=== PATIENT | female | born 1970 | race Caucasian/White ===

== ENCOUNTER 2022-09-18 02:39 | Emergency (ER) | payer BC, SELFPAY ==
--- NOTE | ~2022-09-18 | CT_ITS ---
EXAMINATION: CT ABDOMEN AND PELVIS WITH CONTRAST CLINICAL INFORMATION: Left lower quadrant pain COMPARISON: None available. TECHNIQUE: Multidetector volumetric images were obtained from the superior aspect of the liver through the pubic symphysis following administration 85 mL of Omnipaque 350 intravenous contrast. Sagittal and coronal reformatted images were obtained on the technologist's workstation. Oral contrast: No This CT examination was performed using dose optimization techniques as appropriate, variously including the following: *Automated exposure control *Adjustment of mA and/or kV according to patient size (this includes techniques or standardized protocols for targeted exams where dose is matched to indication/reason for exam; i.e. extremities or head) *Use of iterative reconstruction technique DLP: 417 mGy-cm FINDINGS: LUNG BASES: The visualized lung bases are unremarkable. LIVER, GALLBLADDER, AND BILIARY TREE: The liver is normal in size, shape, and attenuation. No biliary ductal dilatation. Prominent hypoattenuating lesion in segment 2 of the liver which measures higher than simple fluid.. The gallbladder is unremarkable with no evidence of radiopaque gallstones, gallbladder wall thickening, or obvious pericholecystic inflammatory changes. PANCREAS: Unremarkable. SPLEEN: Unremarkable. ADRENAL GLANDS: Unremarkable. KIDNEYS AND URETERS: The kidneys are normal in size, shape, and attenuation. No hydronephrosis or hydroureter. Adjacent right midpole 0.4 cm calculi, 8 cm from the posterior axillary line. Hypoattenuating lesions are seen throughout the cortices, too small to fully characterize. BLADDER: Unremarkable. GASTROINTESTINAL TRACT: The small and large bowel are unremarkable. The appendix is unremarkable. ABDOMINAL WALL: No significant hernia is appreciated. LYMPH NODES: Normal. VASCULAR: Unremarkable. PELVIC VISCERA: The uterus and adnexa are unremarkable. OSSEOUS STRUCTURES: No acute or suspicious osseous abnormality. CT/CT abdomen pelvis w IV con IMPRESSION: 1. No acute findings in the abdomen or pelvis. No inflammatory changes. 2. Nonobstructing right renal calculi. 3. Prominent hypoattenuating lesion in segment 2 of the liver which measures higher than simple fluid. This can be evaluated further with ultrasound. Fleischner guidelines were followed.
[2022-09-18 02:41] VITALS: BP 128/65; PULSE 86; RESP 18; TEMP 36.7; O2SAT 96; BMI 19.3
[2022-09-18 03:03] LABS: Appearance Urine Cloudy; Color Urine Dark Yellow; Glucose Urine UA Negative (Negative); Leukocyte Esterase Urine Negative (Negative); Nitrite Urine Negative (Negative); PH 6.5 (5.0-9.0); Urine Blood Negative (Negative); Urine Ketones Negative (Negative); Urine Protein Negative (Neg-Trace)
--- NOTE | 2022-09-18 03:09 | ED_ITS ---
HPI - Female Genitourinary General Chief complaint: Urogenital-Female Stated complaint: Dizziness/Abd pain Time Seen by Provider: 09/18/22 03:00 History of Present Illness HPI Narrative: Patient is a 52-year-old female with a history of yeast infection to Ezequiel swab by her primary OBGYN. Presents today with having nausea vomiting lower abdominal pain. Pain is worse on the left side. No fever no chills. No cough no congestion no respiratory symptoms. No diaphoresis. Positive pain on urination. No change in bowel movement. Pain is cramp like. No history of abdominal surgery. Patient is postmenopausal. Related Data Previous Rx's Medication Instructions Recorded ondansetron 4 mg disintegrating 4 mg PO TID PRN nausea and 09/18/22 tablet vomiting 5 days #10 tabs Allergies Allergy/AdvReac Type Severity Reaction Status Date / Time No Known Allergies Allergy Verified 09/18/22 03:06 Review of Systems Review of Systems: No fever no chills. Positive abdominal pain Yes all other systems are reviewed and are negative [facility] Past Medical History Attestation statement: The following information was validated with the patient. Social History Social History Advance Directives: No Advance Directives Information Provided: Yes Physical Exam Vital Signs: Vital Signs: Last Vital Signs Temp 98.0 F 09/18/22 04:49 Pulse 61 09/18/22 04:49 Resp 16 09/18/22 04:49 BP 115/52 L 09/18/22 04:49 Pulse Ox 97 09/18/22 04:49 O2 Del Method Room Air 09/18/22 04:49 BMI result Body Mass Index 19.3 Appearance: Alert. Oriented X3. No acute distress. Eyes: Pupils equal, round and reactive to light. ENT: Pharynx normal. Neck: Normal inspection. Neck supple. No lymph nodes noted. No crepitus CVS: Normal heart rate and rhythm. Pulses normal. Normal S1 and S2 Respiratory: No respiratory distress. Breath sounds normal. No Wheezing. No rales Abdomen: Soft and nontender. No rigidity. No distention. good BS x4 Skin: Skin warm and dry. Normal skin color. Normal skin turgor. Extremities: No lower extremity edema. Neurovascular intact to all extremities. No Lacerations. No Rash Neuro: Oriented X 3. No motor deficit. No sensory deficit. Moving all extermities. No slurred speech Medications Administered Discontinued Medications Generic Name Dose Route Start Last Admin Trade Name Anai PRN Reason Stop Dose Admin Sodium Chloride 1,000 mls @ 999 mls/hr 09/18/22 03:15 09/18/22 04:37 Ns IV 09/18/22 04:15 Infused .Q1H1M JANETH Infusion Iohexol 85 ml 09/18/22 04:49 09/18/22 04:49 Iohexol 350 Mg/Ml 100 Ml Infus..Btl IV 09/18/22 04:50 85 ml ONCE ONE Administration Ketorolac Tromethamine 30 mg 09/18/22 03:07 09/18/22 03:23 Ketorolac Tromethamine 30 Mg/Ml Vial IVPUSH 09/18/22 03:08 30 mg ONCE ONE Administration Ondansetron HCl 4 mg 09/18/22 03:07 09/18/22 03:23 Ondansetron Hcl 4 Mg/2 Ml Vial IVPUSH 09/18/22 03:08 4 mg ONCE ONE Administration Medical Decision Making Medical Decision Making [facility] Narrative: Patient presents today with having nausea lower abdominal pain. Already had a pelvic exam done by her primary physician. Patient was started on medication for yeast infection. Patient's urine was grossly negative for any acute evidence of infection. CT scan of the abdomen pelvis showed no evidence of appendicitis, diverticulitis, abscess, perforation. Patient well-appearing given IV fluids Zofran for nausea with good resolution of symptoms. Will discharge patient home. Hypoattenuation lesion noted in the liver. More likely a cyst. Will require follow-up on an outpatient basis. A copy of the CT scan was given to patient. Differential Diagnosis Differential Diagnoses: The differential diagnosis associated with the presentation includes Nausea, urinary tract infection, appendicitis, diverticulitis, Lab Data 09/18/22 03:17 09/18/22 03:17 Labs: Lab Results 09/18/22 09/18/22 09/18/22 Range/Units 02:55 03:17 03:17 WBC 7.2 (4.8-10.8) X10*3/uL RBC 4.33 (4.20-5.50) X10*6/uL Hgb 13.7 (12.0-16.0) g/dl Hct 40.3 (37.0-47.0) % MCV 93.1 (80.0-98.0) fL MCH 31.6 (27.0-33.0) pg MCHC 34.0 (31.0-35.0) g/dl RDW 11.8 (11.0-16.0) % Plt Count 231 (160-400) X10*3/uL MPV 9.6 (9.4-12.3) fL Immature Gran % (Auto) 0.1 (0.0-0.4) % Neut % (Auto) 59.5 (45-73) % Lymph % (Auto) 27.7 (20-40) % Lake % (Auto) 9.5 (2-11) % Eos % (Auto) 2.5 (0-4) % Baso % (Auto) 0.7 (0-2) % Lymph # (Auto) 2.0 (1.2-4.9) X10*3/uL [place] # (Auto) 0.7 (0.1-1.2) X10*3/uL Eos # (Auto) 0.2 (0.0-0.4) X10*3/uL Baso # (Auto) 0.1 (0.0-0.2) X10*3/uL Abs Immat Gran (auto) 0.01 (0.00-0.03) X10*3/uL Absolute Neuts (auto) 4.3 (2.0-8.3) x10*3/uL Absolute Nucleated RBC 0.000 (0.0-0.012) X10*3/uL Nucleated RBC % (auto) 0.0 (0.0-0.2) /100WBC Sodium 140 (135-145) mmol/L Potassium 4.0 (3.3-5.1) mmol/L Chloride 108 (96-108) mmol/L Carbon Dioxide 24 (22-29) mmol/L Anion Gap 12 (12-20) BUN 18 H (9-16) mg/dL Creatinine 0.79 (0.5-1.4) mg/dL Estim Creat Clear Calc 80.5 Estimated GFR > 60 Random Glucose 106 (60-115) mg/dL Calcium 8.8 (8.4-10.2) mg/dL Total Bilirubin 0.4 (0.0-1.0) mg/dL Direct Bilirubin 0.1 (0.0-0.5) mg/dL AST 19 (5-31) U/L ALT 14 (0-31) U/L Alkaline Phosphatase 60 (39-117) U/L Total Protein 6.3 L (6.5-8.0) g/dL Albumin 4.0 (3.5-5.0) g/dL Lipase 29 (8-78) U/L Urine Color Dark Yellow Urine Appearance Cloudy Urine pH 6.5 (5.0-9.0) Ur Specific [place] 1.020 (1.005-1.025) Urine Protein Negative (Neg-Trace) mg/dL Urine Glucose (UA) Negative (Negative) mg/dL Urine Ketones Negative (Negative) mg/dL Urine Blood Negative (Negative) Urine Nitrite Negative (Negative) Ur Leukocyte Esterase Negative (Negative) Prescription Management Nausea medication Discharge Plan Discharge Clinical Impression: Nausea Patient Disposition: Home, Self-Care Instructions: Acute Nausea and Vomiting (ED) Prescriptions: New ondansetron 4 mg tablet,disintegrating 4 mg PO TID PRN (Reason: nausea and vomiting) 5 Days Qty: 10 0RF Referrals: Physician,Ami J [Primary Care Provider] - 09/20/22
[2022-09-18 03:21] LABS: MANUAL DIFF FLAG NO
[2022-09-18 03:22] LABS: Basophils Absolute Auto 0.1 X10*3/uL (0.0-0.2); Basophils Percent Auto 0.7 % (0-2); Eosinophils Absolute Auto 0.2 X10*3/uL (0.0-0.4); Eosinophils Percent Auto 2.5 % (0-4); Hematocrit 40.3 % (37.0-47.0); Hemoglobin 13.7 g/dl (12.0-16.0); Imm Gran Abs Auto 0.01 X10*3/uL (0.00-0.03); Imm Gran Pct Auto 0.1 % (0.0-0.4); Lymphocytes Percent Auto 27.7 % (20-40); Mean Corpuscular Hemoglobin 31.6 pg (27.0-33.0); Mean Corpuscular Volume 93.1 fL (80.0-98.0); Mean Platelet Volume 9.6 fL (9.4-12.3); Monocytes Absolute Auto 0.7 X10*3/uL (0.1-1.2); Monocytes Percent Auto 9.5 % (2-11); Neutrophils Absolute Auto 4.3 x10*3/uL (2.0-8.3); Neutrophils Percent Auto 59.5 % (45-73); Platelet Count 231 X10*3/uL (160-400); Red Blood Count 4.33 X10*6/uL (4.20-5.50); Red Cell Distribution Width 11.8 % (11.0-16.0); White Blood Count 7.2 X10*3/uL (4.8-10.8)
[2022-09-18] MEDS: Ketorolac Tromethamine 30 MG/ML VIAL IVPUSH (03:23)
[2022-09-18] MEDS: ondansetron HCL 4 MG/2 ML VIAL IVPUSH (03:23)
[2022-09-18] MEDS: 0.9 % Sodium Chloride 1,000 ML 999 ML IV (03:27)
--- NOTE | 2022-09-18 03:30 | PC.NURSE ---
Patient is alert and oriented x3. Patient is able to make her needs known. She c/o pressure like pain in lower abdomen, urinary frequency, nausea. Patient was recently treated for vaginal yeast infection with Monistat. Patient is afebrile, VSS. IV line placed in R AC, blood drawn/urine specimen collected per MD orders and sent to lab for processing. Patient medicated per JUL, call hilton in patient's reach.
[2022-09-18 03:38] LABS: Alanine Aminotransferase 14 U/L (0-31); Alkaline Phosphatase 60 U/L (39-117); Anion Gap 12 (12-20); Aspartate Amino Transferase 19 U/L (5-31); Bilirubin Direct 0.1 mg/dL (0.0-0.5); Bilirubin Total 0.4 mg/dL (0.0-1.0); Blood Urea Nitrogen 18 mg/dL (9-16); Calcium 8.8 mg/dL (8.4-10.2); Carbon Dioxide 24 mmol/L (22-29); Chloride 108 mmol/L (96-108); Creatinine Clr Calc Pharmacy 80.5; Estimated Glomerular Filt Rate > 60; Glucose Random 106 mg/dL (60-115); Lipase 29 U/L (8-78); Sodium 140 mmol/L (135-145); Total Protein 6.3 g/dL (6.5-8.0)
--- NOTE | 2022-09-18 04:37 | PC.NURSE ---
Patient taken to CT scan.
[2022-09-18 04:49] VITALS: BP 115/52; PULSE 61; RESP 16; TEMP 36.7; O2SAT 97
[2022-09-18] MEDS: iohexoL 350 MG/ML 100 ML INFUS..BTL 85 ML IV (04:49)
--- NOTE | 2022-09-18 04:53 | PC.NURSE ---
Patient returned from CT scan. Vital signs obtained. Patient reports pain in lower abdomen at tolerable level /10. Call hilton within patient's reach.
== END 2022-09-18 05:52 | disposition home or self-care (01) ==
PROVIDERS: Emergency Provider Emergency Medicine Emergency Medical Services
DX: R10.2 Pelvic and perineal pain (principal); R11.2 Nausea with vomiting, unspecified; R10.30 Lower abdominal pain, unspecified; Z79.899 Other long term (current) drug therapy
CPT/HCPCS: 36415; 74177; 80048; 80076; 81003; 83690; 85025; 96361; 96374; 96375; 99284; 99285; J1885; J2405; Q9967

== ENCOUNTER 2022-09-24 15:54 | Emergency (ER) | payer BC, SELFPAY ==
--- NOTE | ~2022-09-24 | US_ITS ---
EXAMINATION: US PELVIS CLINICAL INFORMATION: Suprapubic pain, dysuria. Postmenopausal. COMPARISON: CT abdomen/pelvis 09/18/2022. TECHNIQUE: Ultrasound of the pelvis is performed using both transabdominal and transvaginal transducers along with Doppler. Transvaginal imaging is performed due to inadequate visualization transabdominally. FINDINGS: The uterus is anteverted and anteflexed measuring 9 x 4.5 x 5 cm. No uterine lesions. The endometrium measures 0.5 cm without discrete focal abnormality. Nabothian cysts overlie the cervix. The left ovary is not visualized, there is history of prior left oophorectomy. There are multiple cystic lesions in the right ovary some demonstrating internal septations and debris, largest measuring approximately 2.6 x 2.2 x 2.3 cm. The right ovary, with inclusion of these cysts, measures 4.5 x 3.3 x 2.7 cm, 21 mL. There is preserved flow to the ovarian stroma the moment of this examination, although evaluation is limited due to the overlying cystic lesions. There are tortuous adnexal vessels. No free fluid. US/US pelvic and transvaginal IMPRESSION: Complex appearance of the right ovary which is enlarged and demonstrates several cystic lesions, some with internal septations. In a post menopausal patient, further evaluation with a pelvic MRI with and without IV contrast is recommended to rule out malignancy. Tortuous adnexal vessels could be seen with pelvic congestion syndrome in the appropriate clinical context. The endometrium is within the upper limits of normal for postmenopausal patient measuring 0.5 cm.
--- NOTE | ~2022-09-24 | US_ITS ---
EXAMINATION: US PELVIS CLINICAL INFORMATION: Suprapubic pain, dysuria. Postmenopausal. COMPARISON: CT abdomen/pelvis 09/18/2022. TECHNIQUE: Ultrasound of the pelvis is performed using both transabdominal and transvaginal transducers along with Doppler. Transvaginal imaging is performed due to inadequate visualization transabdominally. FINDINGS: The uterus is anteverted and anteflexed measuring 9 x 4.5 x 5 cm. No uterine lesions. The endometrium measures 0.5 cm without discrete focal abnormality. Nabothian cysts overlie the cervix. The left ovary is not visualized, there is history of prior left oophorectomy. There are multiple cystic lesions in the right ovary some demonstrating internal septations and debris, largest measuring approximately 2.6 x 2.2 x 2.3 cm. The right ovary, with inclusion of these cysts, measures 4.5 x 3.3 x 2.7 cm, 21 mL. There is preserved flow to the ovarian stroma the moment of this examination, although evaluation is limited due to the overlying cystic lesions. There are tortuous adnexal vessels. No free fluid. US/US pelvic ovarian doppler IMPRESSION: Complex appearance of the right ovary which is enlarged and demonstrates several cystic lesions, some with internal septations. In a post menopausal patient, further evaluation with a pelvic MRI with and without IV contrast is recommended to rule out malignancy. Tortuous adnexal vessels could be seen with pelvic congestion syndrome in the appropriate clinical context. The endometrium is within the upper limits of normal for postmenopausal patient measuring 0.5 cm.
[2022-09-24 16:05] VITALS: BP 134/87; PULSE 96; RESP 18; TEMP 36.6; O2SAT 97; BMI 20.2
--- NOTE | 2022-09-24 16:07 | ED_ITS ---
HPI - Female Genitourinary General Chief complaint: Urogenital-Female <STEPHANIE Polo Last Filed: 09/24/22 16:14> Stated complaint: ?UTI/ meds not working <STEPHANIE Polo Last Filed: 09/24/22 16:14> Time Seen by Provider: 09/24/22 16:42 <STEPHANIE Polo Last Filed: 09/24/22 16:14> Source: patient, RN notes reviewed and old records reviewed <STEPHANIE Tran Last Filed: 09/24/22 19:30> Mode of arrival: ambulatory <STEPHANIE Tran Last Filed: 09/24/22 19:30> History of Present Illness HPI Narrative: 52-year-old female with a past medical history of left cystectomy with oophorectomy, recently treated for yeast infection with Diflucan x 3 doses and UTI (has taken 2 doses of Macrobid) complaining of continued nausea, pelvic discomfort/pressure, mild dysuria, and vaginal discharge. Patient was recently seen by PCP and in our ED on 09/18/22 for similar symptoms, had negative yeast culture, labs, UA, and CT. Admits symptoms did improve after Diflucan doses, however recurred. Is sexually active with 1 male partner, denies concern for STIs. Denies vomiting, hematuria, vaginal bleeding, flank pain, constipation <STEPHANIE Tran Last Filed: 09/24/22 19:30> MD elicited complaint: dysuria, UTI , vaginal discharge and pelvic pain <STEPHANIE Tran Last Filed: 09/24/22 19:30> Related Data Home medications: Previous Rx's Medication Instructions Recorded ondansetron 4 mg disintegrating 4 mg PO TID PRN nausea and 09/18/22 tablet vomiting 5 days #10 tabs clotrimazole 1 % topical cream 1 appl topical BID 2 weeks #45 09/24/22 (Clotrimazole AF) grams doxycycline hyclate 100 mg capsule 100 mg PO BID 14 days #28 caps 09/24/22 metronidazole 500 mg tablet 500 mg PO BID 14 days #28 tabs 09/24/22 <STEPHANIE Polo Last Filed: 09/24/22 16:14> Allergies/Adverse reactions: Allergies Allergy/AdvReac Type Severity Reaction Status Date / Time No Known Allergies Allergy Verified 09/24/22 16:05 <STEPHANIE Polo - Last Filed: 09/24/22 16:14> Review of Systems Review of Systems: Constitutional: No Fever, No Chills, No Fatigue, No Malaise ENT/Mouth: No Ear Pain, No Nasal Congestion, No sore throat, No Rhinorrhea, No Swallowing Difficulty Eyes: No Eye Pain, No Swelling, No Redness Cardiovascular: No Chest Pain, No SOB, No Dyspnea on Exertion, No Orthopnea, No Edema, No Palpitations Respiratory: No Cough, No Sputum, No Wheezing, No Smoke Exposure, No Dyspnea Gastrointestinal: + Nausea, No Vomiting, No Diarrhea, No Constipation, + Abdominal pain Genitourinary: +vaginal d/c, No irregular bleeding, + Dysuria, No Urinary Frequency, No Hematuria, No Urinary Incontinence/retention, No Flank Pain Musculoskeletal: No joint pain, No Myalgias, No Joint Swelling Skin: No Skin Lesions, No rash Neuro: No Weakness, No Headache <STEPHANIE Tran - Last Filed: 09/24/22 19:30> Yes all other systems are reviewed and are negative <STEPHANIE Tran - Last Filed: 09/24/22 19:30> Constitutional: Constitutional: Reports as per HPI <STEPHANIE Tran - Last Filed: 09/24/22 19:30> [facility] Past Medical History Attestation statement: The following information was validated with the patient. <Jason Tran - Last Filed: 09/24/22 19:30> Social History Social History: Social History Advance Directives: No Advance Directives Information Provided: No <STEPHANIE Polo - Last Filed: 09/24/22 16:14> Physical Exam Vital Signs: Vital Signs: Last Vital Signs Temp 97.9 F 09/24/22 16:05 Pulse 96 09/24/22 16:05 Resp 18 09/24/22 16:05 BP 134/87 09/24/22 16:05 Pulse Ox 97 09/24/22 16:05 O2 Del Method Room Air 09/24/22 16:05 BMI result Body Mass Index 20.2 <STEPHANIE Polo - Last Filed: 09/24/22 16:14> Vital Signs: Last Vital Signs Temp 97.9 F 09/24/22 16:05 Pulse 96 09/24/22 16:05 Resp 18 09/24/22 16:05 BP 134/87 09/24/22 16:05 Pulse Ox 97 09/24/22 16:05 O2 Del Method Room Air 09/24/22 16:05 BMI result Body Mass Index 20.2 <STEPHANIE Tran - Last Filed: 09/24/22 19:30> Const: General: cooperative, healthy appearing and no acute distress <STEPHANIE Tran - Last Filed: 09/24/22 19:30> Orientation/consciousness: patient oriented x3 <STEPHANIE Tran - Last Filed: 09/24/22 19:30> Limitations: no limitations <STEPHANIE Tran - Last Filed: 09/24/22 19:30> HEENT: Head: Yes normal to inspection and Yes atraumatic <STEPHANIE Tran - Last Filed: 09/24/22 19:30> Ears: hearing grossly normal bilaterally <STEPHANIE Tran - Last Filed: 09/24/22 19:30> General nose exam: Normal external nose present <STEPHANIE Tran - Last Filed: 09/24/22 19:30> Face and sinus: Yes normal facial exam <STEPHANIE Tran - Last Filed: 09/24/22 19:30> Eyes: General: appearance normal, both eyes and all related structures <STEPHANIE Tran - Last Filed: 09/24/22 19:30> EOM: EOMs intact bilaterally <STEPHANIE Tran - Last Filed: 09/24/22 19:30> Neck: Neck: Yes normal visual inspection and Yes no meningeal signs <STEPHANIE Tran - Last Filed: 09/24/22 19:30> Resp: Effort & Inspection: normal respiratory effort and no respiratory distress <STEPHANIE Tran - Last Filed: 09/24/22 19:30> Cardio: Rate: regular rate <STEPHANIE Tran - Last Filed: 09/24/22 19:30> Heart sounds: S1 normal heart sound present and S2 normal heart sound present <Lauren Nguyen PA - Last Filed: 09/24/22 19:30> GI: Inspection: Yes normal to inspection <Lauren Nguyen PA - Last Filed: 09/24/22 19:30> Palpation (GI): Soft to palpation, nontender, no guarding and not rigid <Lauren Nguyen PA - Last Filed: 09/24/22 19:30> : General: Yes no CVA tenderness <Lauren Nguyen PA - Last Filed: 09/24/22 19:30> Speculum Exam - Cervix: Abnormal cervical discharge present white (thick, curd- like), Cervical lesion present polyp and nontender <Lauren Nguyen PA - Last Filed: 09/24/22 19:30> Bimanual exam- vagina & uterus: No Cervical tenderness present, not boggy and no cervical motion tenderness <Lauren Nguyen PA - Last Filed: 09/24/22 19:30> Bimanual Exam- Adnexa, other: tender bilaterally and no masses noted <Lauren Nguyen PA - Last Filed: 09/24/22 19:30> Back/Spine/Pelvis: Back: no CVA tenderness <Lauren Nguyen PA - Last Filed: 09/24/22 19:30> Skin: Rashes: no rashes <Lauren Nguyen PA - Last Filed: 09/24/22 19:30> Wounds: no wounds <Lauren Nguyen PA - Last Filed: 09/24/22 19:30> Neuro: General: patient oriented x3, tone normal and no meningeal signs <Lauren Nguyen PA - Last Filed: 09/24/22 19:30> Gait exam (Neuro): Normal gait present <Lauren Nguyen PA - Last Filed: 09/24/22 19:30> Extrem: General: Yes normal to inspection <Lauren Nguyen PA - Last Filed: 09/24/22 19:30> Course Course Course Narrative: RME - 52 yo female with recent yeast infection s/p diflucan x3 since last week who presents to the ER for evaluation of worsening bladder pressure since last week. She also has severe bouts of nausea, dizziness and weakness. She was seen here on 09/18, had a negative UA and CT scan at the time. She was seen at Urgent Care yesterday, had a negative UA but was started on macrobid with no improvement. She reports recently using new sex todays vaginally and anally with a lubricant w/ clove. Plan: UA, pelvic exam <STEPHANIE Polo - Last Filed: 09/24/22 16:14> RME - 52 yo female with recent yeast infection s/p diflucan x3 since last week who presents to the ER for evaluation of worsening bladder pressure since last week. She also has severe bouts of nausea, dizziness and weakness. She was seen here on 09/18, had a negative UA and CT scan at the time. She was seen at Urgent Care yesterday, had a negative UA but was started on macrobid with no improvement. She reports recently using new sex todays vaginally and anally with a lubricant w/ clove. Plan: UA, pelvic exam -1647--UA unremarkable -Labs reassuring -0-- US pelvic ovarian doppler IMPRESSION: Complex appearance of the right ovary which is enlarged and demonstrates several cystic lesions, some with internal septations. In a post menopausal patient, further evaluation with a pelvic MRI with and without IV contrast is recommended to rule out malignancy. ? Tortuous adnexal vessels could be seen with pelvic congestion syndrome in the appropriate clinical context. ? The endometrium is within the upper limits of normal for postmenopausal patient measuring 0.5 cm. > results discussed with patient, patient was supplied with copy of her ultrasound results, recommended close outpatient OBGYN follow-up specifically OBGYN oncology and further workup of ultrasound findings w/MRI. -Will treat patient empirically for PID with IM Rocephin, p.o. doxycycline, and p.o. Flagyl x 14 day course. Will also give topical vulvovaginal candidiasis treatment as patient has failed 3 oral doses of fluconazole Results discussed with patient including worrisome signs and symptoms and strict return precautions, and when to return to the emergency department. They verbalized understanding and feel safe for discharge at this time. <STEPHANIE Tran - Last Filed: 09/24/22 19:30> Medical Decision Making Medical Decision Making [facility] Narrative: 52-year-old female with a past medical history of left cystectomy with oophorectomy, recently treated for yeast infection with Diflucan x 3 doses and UTI (has taken 2 doses of Macrobid) complaining of continued nausea, pelvic discomfort/pressure, mild dysuria, and vaginal discharge. On exam vital signs stable, NAD, nontoxic appearing, abdomen soft/nontender, no CVAT. On pelvic exam thick white curd-like vaginal discharge noted, cervical polyp with bilate ral adnexal tenderness, no CMT, no chandelier sign. Concern for UTI vs cystitis/vaginitis vs STI vs PID vs ovarian cyst. Lower suspicion for ovarian torsion, appendicitis or diverticulitis. Lower ministerio picion for pyelo Plan: Labs, UA, STI testing, pelvic ultrasound Please refer to course for remaining clinical decision making, interpretation of labs/imaging results, and discussions with consultants and/or family members. <STEPHANIE Tran - Last Filed: 09/24/22 19:30> Differential Diagnosis Differential Diagnoses: The differential diagnosis associated with the presentation includes <STEPHANIE Tran - Last Filed: 09/24/22 19:30> As above <STEPHANIE Tran - Last Filed: 09/24/22 19:30> Admission/Observation Consideration of admission/observation: Escalation of care including admission/observation considered <STEPHANIE Tran - Last Filed: 09/24/22 19:30> Lab Data [facility] Lab Attestation statement: I reviewed the patient's lab results. <STEPHANIE Tran - Last Filed: 09/24/22 19:30> Result Diagrams: 09/24/22 18:28 09/24/22 18:28 <STEPHANIE Polo - Last Filed: 09/24/22 16:14> Labs: Lab Results 09/24/22 09/24/22 09/24/22 Range/Units 16:18 18:28 18:28 WBC 6.2 (4.8-10.8) X10*3/uL RBC 4.24 (4.20-5.50) X10*6/uL Hgb 13.3 (12.0-16.0) g/dl Hct 39.2 (37.0-47.0) % MCV 92.5 (80.0-98.0) fL MCH 31.4 (27.0-33.0) pg MCHC 33.9 (31.0-35.0) g/dl RDW 12.0 (11.0-16.0) % Plt Count 223 (160-400) X10*3/uL MPV 9.9 (9.4-12.3) fL Immature Gran % (Auto) 0.2 (0.0-0.4) % Neut % (Auto) 53.6 (45-73) % Lymph % (Auto) 36.1 (20-40) % [place] % (Auto) 7.6 (2-11) % Eos % (Auto) 1.5 (0-4) % Baso % (Auto) 1.0 (0-2) % Lymph # (Auto) 2.2 (1.2-4.9) X10*3/uL [place] # (Auto) 0.5 (0.1-1.2) X10*3/uL Eos # (Auto) 0.1 (0.0-0.4) X10*3/uL Baso # (Auto) 0.1 (0.0-0.2) X10*3/uL Abs Immat Gran (auto) 0.01 (0.00-0.03) X10*3/uL Absolute Neuts (auto) 3.3 (2.0-8.3) x10*3/uL Absolute Nucleated RBC 0.000 (0.0-0.012) X10*3/uL Nucleated RBC % (auto) 0.0 (0.0-0.2) /100WBC Sodium 140 (135-145) mmol/L Potassium 3.7 (3.3-5.1) mmol/L Chloride 106 (96-108) mmol/L Carbon Dioxide 26 (22-29) mmol/L Anion Gap 12 (12-20) BUN 11 (9-16) mg/dL Creatinine 0.75 (0.5-1.4) mg/dL Estim Creat Clear Calc 81.0 Estimated GFR > 60 Random Glucose 174 H (60-115) mg/dL Calcium 9.4 D (8.4-10.2) mg/dL Total Bilirubin 0.5 (0.0-1.0) mg/dL Direct Bilirubin 0.2 (0.0-0.5) mg/dL AST 18 (5-31) U/L ALT 16 (0-31) U/L Alkaline Phosphatase 53 (39-117) U/L Total Protein 6.2 L (6.5-8.0) g/dL Albumin 4.0 (3.5-5.0) g/dL Lipase 20 (8-78) U/L Urine Color Yellow Urine Appearance Clear Urine pH 6.5 (5.0-9.0) Ur Specific [place] 1.015 (1.005-1.025) Urine Protein Negative (Neg-Trace) mg/dL Urine Glucose (UA) Negative (Negative) mg/dL Urine Ketones Negative (Negative) mg/dL Urine Blood Negative (Negative) Urine Nitrite Negative (Negative) Ur Leukocyte Esterase Negative (Negative) <STEPHANIE Polo - Last Filed: 09/24/22 16:14> Lab Results 09/24/22 09/24/22 09/24/22 Range/Units 16:18 18:28 18:28 WBC 6.2 (4.8-10.8) X10*3/uL RBC 4.24 (4.20-5.50) X10*6/uL Hgb 13.3 (12.0-16.0) g/dl Hct 39.2 (37.0-47.0) % MCV 92.5 (80.0-98.0) fL MCH 31.4 (27.0-33.0) pg MCHC 33.9 (31.0-35.0) g/dl RDW 12.0 (11.0-16.0) % Plt Count 223 (160-400) X10*3/uL MPV 9.9 (9.4-12.3) fL Immature Gran % (Auto) 0.2 (0.0-0.4) % Neut % (Auto) 53.6 (45-73) % Lymph % (Auto) 36.1 (20-40) % Jefferson % (Auto) 7.6 (2-11) % Eos % (Auto) 1.5 (0-4) % Baso % (Auto) 1.0 (0-2) % Lymph # (Auto) 2.2 (1.2-4.9) X10*3/uL [place] # (Auto) 0.5 (0.1-1.2) X10*3/uL Eos # (Auto) 0.1 (0.0-0.4) X10*3/uL Baso # (Auto) 0.1 (0.0-0.2) X10*3/uL Abs Immat Gran (auto) 0.01 (0.00-0.03) X10*3/uL Absolute Neuts (auto) 3.3 (2.0-8.3) x10*3/uL Absolute Nucleated RBC 0.000 (0.0-0.012) X10*3/uL Nucleated RBC % (auto) 0.0 (0.0-0.2) /100WBC Sodium 140 (135-145) mmol/L Potassium 3.7 (3.3-5.1) mmol/L Chloride 106 (96-108) mmol/L Carbon Dioxide 26 (22-29) mmol/L Anion Gap 12 (12-20) BUN 11 (9-16) mg/dL Creatinine 0.75 (0.5-1.4) mg/dL Estim Creat Clear Calc 81.0 Estimated GFR > 60 Random Glucose 174 H (60-115) mg/dL Calcium 9.4 D (8.4-10.2) mg/dL Total Bilirubin 0.5 (0.0-1.0) mg/dL Direct Bilirubin 0.2 (0.0-0.5) mg/dL AST 18 (5-31) U/L ALT 16 (0-31) U/L Alkaline Phosphatase 53 (39-117) U/L Total Protein 6.2 L (6.5-8.0) g/dL Albumin 4.0 (3.5-5.0) g/dL Lipase 20 (8-78) U/L Urine Color Yellow Urine Appearance Clear Urine pH 6.5 (5.0-9.0) Ur Specific [place] 1.015 (1.005-1.025) Urine Protein Negative (Neg-Trace) mg/dL Urine Glucose (UA) Negative (Negative) mg/dL Urine Ketones Negative (Negative) mg/dL Urine Blood Negative (Negative) Urine Nitrite Negative (Negative) Ur Leukocyte Esterase Negative (Negative) <STEPHANIE Tran - Last Filed: 09/24/22 19:30> Radiology Impression Discussion of test interpretation with radiology: I have reviewed the radiologist's reading. <STEPHANIE Tran - Last Filed: 09/24/22 19:30> External Record Review External record reviewed: Inpatient record, Office record, Outpatient record, Prior outpatient labs, Prior outpatient radiology, Primary care record and Outside ED record <STEPHANIE Tran Last Filed: 09/24/22 19:30> Discharge Plan Discharge Clinical Impression: Acute pelvic inflammatory disease (PID), Complex cyst of right ovary <STEPHANIE Polo Last Filed: 09/24/22 16:14> Patient Disposition: Home, Self-Care <STEPHANIE Polo Last Filed: 09/24/22 16:14> Instructions: Pelvic Pain (ED) <STEPHANIE Polo Last Filed: 09/24/22 16:14> Additional Instructions: Your blood work is reassuring. Her urine is not infected Your ultrasound shows a complex appearance of your right ovary which is enlarged and has several cystic lesions with some internal septations. It is recommended to have an outpatient pelvic MRI with and without IV contrast for further evaluation and to rule out malignancy. Ultrasound also shows torturous adnexal vessels which could be consistent with pelvic congestion syndrome We tested you for sexually transmitted infections and are treating you empirically for a pelvic infection It is important to take these medications until completion. Please refrain from any sexual contact until you know the results of her cultures, & until all symptoms have resolved imaged for at least 1 week after treatment is completed If symptoms persist or worsen you need to return to the emergency department <STEPHANIE Polo - Last Filed: 09/24/22 16:14> Prescriptions: New metronidazole 500 mg tablet 500 mg PO BID 14 Days Qty: 28 0RF doxycycline hyclate 100 mg capsule 100 mg PO BID 14 Days Qty: 28 0RF clotrimazole [Clotrimazole AF] 1 % cream 1 appl topical BID 14 Days Qty: 45 0RF No Action ondansetron 4 mg tablet,disintegrating 4 mg PO TID PRN (Reason: nausea and vomiting) 5 Days Qty: 10 0RF <STEPHANIE Polo - Last Filed: 09/24/22 16:14> Referrals: Henrietta Quick [Other] [facility] [place] [facility] [Provider Group] <STEPHANIE Polo - Last Filed: 09/24/22 16:14>
[2022-09-24 16:30] LABS: Appearance Urine Clear; Color Urine Yellow; Glucose Urine UA Negative (Negative); Leukocyte Esterase Urine Negative (Negative); Nitrite Urine Negative (Negative); PH 6.5 (5.0-9.0); Specific Gravity - Urine 1.015 (1.005-1.025); Urine Blood Negative (Negative); Urine Ketones Negative (Negative); Urine Protein Negative (Neg-Trace)
[2022-09-24 18:33] LABS: MANUAL DIFF FLAG NO
[2022-09-24 18:46] LABS: Basophils Absolute Auto 0.1 X10*3/uL (0.0-0.2); Eosinophils Absolute Auto 0.1 X10*3/uL (0.0-0.4); Eosinophils Percent Auto 1.5 % (0-4); Hematocrit 39.2 % (37.0-47.0); Hemoglobin 13.3 g/dl (12.0-16.0); Imm Gran Abs Auto 0.01 X10*3/uL (0.00-0.03); Imm Gran Pct Auto 0.2 % (0.0-0.4); Lymphocytes Absolute Auto 2.2 X10*3/uL (1.2-4.9); Lymphocytes Percent Auto 36.1 % (20-40); Mean Corpuscular HGB Conc 33.9 g/dl (31.0-35.0); Mean Corpuscular Hemoglobin 31.4 pg (27.0-33.0); Mean Corpuscular Volume 92.5 fL (80.0-98.0); Mean Platelet Volume 9.9 fL (9.4-12.3); Monocytes Absolute Auto 0.5 X10*3/uL (0.1-1.2); Monocytes Percent Auto 7.6 % (2-11); Neutrophils Absolute Auto 3.3 x10*3/uL (2.0-8.3); Neutrophils Percent Auto 53.6 % (45-73); Platelet Count 223 X10*3/uL (160-400); Red Blood Count 4.24 X10*6/uL (4.20-5.50); White Blood Count 6.2 X10*3/uL (4.8-10.8)
[2022-09-24 18:55] LABS: Alanine Aminotransferase 16 U/L (0-31); Alkaline Phosphatase 53 U/L (39-117); Anion Gap 12 (12-20); Aspartate Amino Transferase 18 U/L (5-31); Bilirubin Direct 0.2 mg/dL (0.0-0.5); Bilirubin Total 0.5 mg/dL (0.0-1.0); Blood Urea Nitrogen 11 mg/dL (9-16); Calcium 9.4 mg/dL (8.4-10.2); Carbon Dioxide 26 mmol/L (22-29); Chloride 106 mmol/L (96-108); Estimated Glomerular Filt Rate > 60; Glucose Random 174 mg/dL (60-115); Lipase 20 U/L (8-78); Potassium 3.7 mmol/L (3.3-5.1); Sodium 140 mmol/L (135-145); Total Protein 6.2 g/dL (6.5-8.0)
[2022-09-24 19:33] LABS: UPreg QC Valid YES; Urine Pregnancy NEGATIVE (NEGATIVE)
[2022-09-24 19:40] VITALS: BP 107/59; PULSE 58; RESP 17; TEMP 36.6; O2SAT 97
[2022-09-24] MEDS: Metoclopramide HCl 10 MG TABLET PO (19:41)
[2022-09-24] MEDS: metroNIDAZOLE 500 MG TABLET PO (19:41)
[2022-09-24] MEDS: Doxycycline Monohydrate 100 MG CAPSULE PO (19:42)
[2022-09-24] MEDS: cefTRIAXone sodium 500 MG, Lidocaine HCl 1 % MPF 1 ML IM (19:43)
[2022-09-25 08:32] LABS: CT PCR NOT DETECTED (Not Detect.); NG PCR NOT DETECTED (Not Detect.)
[2022-09-25 08:55] LABS: BV Int Neg Control Negative (Negative); BV Int Pos Control Positive (Positive)
== END 2022-09-24 19:57 | disposition home or self-care (01) ==
PROVIDERS: Physician Assistant; Emergency Provider Emergency Medicine Emergency Medical Services
DX: N73.9 Female pelvic inflammatory disease, unspecified (principal); N83.201 Unspecified ovarian cyst, right side; R10.2 Pelvic and perineal pain; Z20.822 Contact with and (suspected) exposure to COVID-19; Z20.828 Contact with and (suspected) exposure to other viral communicable diseases; Z79.899 Other long term (current) drug therapy
CPT/HCPCS: 0353U; 36415; 76830; 76856; 80048; 80076; 81003; 81025; 83690; 85025; 87480; 87510; 87660; 93975; 96372; 99283; 99284; J0696

== ENCOUNTER 2022-09-28 09:23 | Emergency (ER) | payer BC, SELFPAY ==
[2022-09-28 09:25] VITALS: BP 138/72; PULSE 77; RESP 16; TEMP 37; O2SAT 96; BMI 20.2
--- NOTE | 2022-09-28 09:35 | ED.GENADULT ---
HPI - General Adult General Chief complaint: General Medical Stated complaint: digestive distress, nauseous, brain fog Time Seen by Provider: 09/28/22 09:34 Source: patient and old records reviewed Mode of arrival: ambulatory Limitations: no limitations History of Present Illness HPI narrative: 52 yo female with history of chronic Lyme disease presents to the ER for evaluation of increased nausea and inability to tolerate her oral antibiotics that were started for PID. She has seen several providers, in [facility], Urgent Care and here in the ER in the last 2 weeks. She was seen here on 09/18 for nausea after being treated with diflucan for a yeast infection. CT abd/pelvis at that time was normal. She was seen at Urgent Care and started on Macrobid for possible UTI. She came back to the ER on 09/24 where she was found to have bilateral adenxal tenderness on exam, thick white vaginal discharge and was started on antibiotics for PID. Pelvic U/S on 09/24 showed complex appearance of right ovary w/ several cystic lesions, pelvic MRI was recommended outpatient to r/o malignancy. Prior to any of her symptoms starting she reports using a new lubricant with clove in it. She used a sex toy anally and vaginally. She has had the same sexual partner for the last 9 months. Even prior to 09/24 patient has been experiencing nausea. It has been worsening. She states she has been unable to tolerate oral antibiotics or food. no vomiting or diarrhea. She has been constipated. MD complaint: nausea Onset (ago): week(s) Location: abdomen Radiation: non-radiation Severity: severe Pain Consistency: constant Relieving factors: none Exacerbating factors: eating Associated symptoms: confusion, loss of appetite, malaise and nausea/vomiting Treatments prior to arrival: none Related Data Previous Rx's Medication Instructions Recorded ondansetron 4 mg disintegrating 4 mg PO TID PRN nausea and 09/18/22 tablet vomiting 5 days #10 tabs clotrimazole 1 % topical cream 1 appl topical BID 2 weeks #45 09/24/22 (Clotrimazole AF) grams doxycycline hyclate 100 mg capsule 100 mg PO BID 14 days #28 caps 09/24/22 metronidazole 500 mg tablet 500 mg PO BID 14 days #28 tabs 09/24/22 metoclopramide HCl 10 mg tablet 10 mg PO Q6H PRN nausea and 09/28/22 (Reglan) vomiting #14 tabs promethazine 25 mg [address] Q6H PRN nausea and 09/28/22 suppository vomiting #12 ea Allergies Allergy/AdvReac Type Severity Reaction Status Date / Time No Known Allergies Allergy Verified 09/28/22 09:25 Review of Systems Review of Systems: Yes all other systems are reviewed and are negative [facility] Past Medical History Medical History (Updated 09/29/22 @ 00:01 by Daryl Birmingham) Lyme disease Social History Social History Alcohol intake: current Alcohol intake frequency: a few times a week Physical Exam ED Vital Signs: Vital Signs - 24 hr 09/28/22 12:00 09/28/22 14:31 Pulse Rate 70 68 Respiratory Rate 16 Blood Pressure 117/39 L 115/58 L Pulse Oximetry 97 96 Oxygen Delivery Method Room Air BMI result Body Mass Index 20.2 Appearance: Alert. Oriented X3. No acute distress. Head: normocephalic, atraumatic. Eyes: Pupils equal, round and reactive to light. ENT: Pharynx normal. No tonsillar swelling or exudate. Neck: Normal inspection. Neck supple. CVS: Normal heart rate and rhythm. Pulses normal. Respiratory: No respiratory distress. Breath sounds normal. Abdomen: Soft with mild bilateral lower abdominal tenderness, without guarding or rebound, normal active +BS x4. pelvic deferred Skin: Skin warm and dry. Normal skin color. Normal skin turgor. No rashes. Extremities: No lower extremity edema. No joint swelling. Neuro/psych: Oriented X 3. No motor deficit. No sensory deficit. CN II-XII intact. Normal speech and cognition. Course Reevaluation(s) Reevaluation #1: patient continues to c/o nausea. seen by Dr. Hinojosa and her symptoms are not thought to be gynecologic at this time. will plan to stop all antibiotics as all cultures have been negative. patient reports a history of a fungal GI tract infection in the past, diagnosed by her functional doctor. she feels like she may have a flare of her Lyme disease vs fungal GI tract infection. she states her nausea is too severe to go home, she cannot tolerate adequate PO. she is requesting admission to the hospital. will d/w hospitlaist. Time: 13:23 Reevaluation #2: patient tolerated francois leila and crackers. case d/w Dr. may who does not feel the patient requires admission at this time. discussed with the patient who is frustrated but understands. will send home with CT phenergan and outpatient follow up. all abx to be stopped. stable for d/c home. Time: 14:34 Medications Administered Discontinued Medications Generic Name Dose Route Start Last Admin Trade Name Freq PRN Reason Stop Dose Admin Docusate Sodium 100 mg 09/28/22 11:32 09/28/22 12:13 Docusate Sodium 100 Mg Capsule PO 09/28/22 11:33 100 mg ONCE ONE Administration Sodium Chloride 1,000 mls @ 999 mls/hr 09/28/22 10:00 09/28/22 11:46 Ns IVCONT 09/28/22 11:00 Infused .Q1H1M JANETH Infusion Sodium Chloride 1,000 mls @ 999 mls/hr 09/28/22 11:30 09/28/22 13:13 Ns IVCONT 09/28/22 12:30 Infused .Q1H1M JANETH Infusion Metoclopramide HCl 10 mg 09/28/22 12:02 09/28/22 12:13 Metoclopramide Hcl 10 Mg/2 Ml Vial IVPUSH 09/28/22 12:03 10 mg ONCE ONE Administration Ondansetron HCl 4 mg 09/28/22 09:47 09/28/22 10:15 Ondansetron Hcl 4 Mg/2 Ml Vial IVPUSH 09/28/22 09:48 4 mg ONCE ONE Administration Polyethylene Glycol 17 gm 09/28/22 11:32 09/28/22 12:14 Polyethylene Glycol 3350 17 Gm Powd.Pack PO 09/28/22 11:33 17 gm ONCE ONE Administration Senna 15 ml 09/28/22 11:32 09/28/22 12:14 Senna [place] Extract Oral Syrup 15 Ml Syrup PO 09/28/22 11:33 15 ml ONCE ONE Administration Medical Decision Making Medical Decision Making MDM Narrative: 52 yo female with history of chronic Lyme disease presents to the ER for evaluation of increased nausea and inability to tolerate her oral antibiotics that were started for PID. She has seen several providers, in [facility], Urgent Care and here in the ER in the last 2 weeks. Patient was found to be negative for gonorrhea and chlamydia. Doubt PID given these findings. She has ongoing nausea. She has been on several courses of antibiotics and antifungals. Her lab workup was unremarkable. Her swabs are negative. Her inflammatory markers are also negative. She feels as though she may have a flare-up of her Lyme disease or a fungal gut infection. We discussed at length how those specific things cannot be 100% detected in the emergency department and empiric treatment would most likely lead to further symptoms. patient has had no identifiable infection. She was advised to stop taking all antibiotics at this time. She was advised follow-up with her primary care doctor and her OBGYN. Will trial rectal Phenergan for nausea. She has no of vomiting and is tolerating p.o. here. No role for hospitalization at this time. Stable for discharge home Differential Diagnosis Differential Diagnoses: The differential diagnosis associated with the presentation includes PID, yeast infection, gonorrhea, chlamydia, abnormal vaginal karen, BV, adverse reaction to antibiotics and antifungals, dehydration, anxiety Admission/Observation Consideration of admission/observation: Escalation of care including admission/observation considered Consult Healthcare Provider Management of the patient was discussed with: Hospitalist and Fast Food Supervisor Dr. Hinojosa [employer] Lab Data MDM Lab Attestation statement: I reviewed the patient's lab results. 09/28/22 09:47 09/28/22 09:47 Labs: Lab Results 09/28/22 09/28/22 09/28/22 Range/Units 09:47 09:47 09:47 WBC 9.4 (4.8-10.8) X10*3/uL RBC 4.38 (4.20-5.50) X10*6/uL Hgb 13.9 (12.0-16.0) g/dl Hct 40.7 (37.0-47.0) % MCV 92.9 (80.0-98.0) fL MCH 31.7 (27.0-33.0) pg MCHC 34.2 (31.0-35.0) g/dl RDW 11.9 (11.0-16.0) % Plt Count 238 (160-400) X10*3/uL MPV 10.0 (9.4-12.3) fL Immature Gran % (Auto) 0.4 (0.0-0.4) % Neut % (Auto) 79.7 H (45-73) % Lymph % (Auto) 13.0 L (20-40) % Dubois % (Auto) 6.2 (2-11) % Eos % (Auto) 0.3 (0-4) % Baso % (Auto) 0.4 (0-2) % Lymph # (Auto) 1.2 (1.2-4.9) X10*3/uL Dubois # (Auto) 0.6 (0.1-1.2) X10*3/uL Eos # (Auto) 0.0 (0.0-0.4) X10*3/uL Baso # (Auto) 0.0 (0.0-0.2) X10*3/uL Abs Immat Gran (auto) 0.04 H (0.00-0.03) X10*3/uL Absolute Neuts (auto) 7.5 (2.0-8.3) x10*3/uL Absolute Nucleated RBC 0.000 (0.0-0.012) X10*3/uL Nucleated RBC % (auto) 0.0 (0.0-0.2) /100WBC ESR 7 (0-20) MM/HR Sodium 139 (135-145) mmol/L Potassium 3.9 (3.3-5.1) mmol/L Chloride 108 (96-108) mmol/L Carbon Dioxide 24 (22-29) mmol/L Anion Gap 11 L (12-20) BUN 15 (9-16) mg/dL Creatinine 0.75 (0.5-1.4) mg/dL Estim Creat Clear Calc 81.0 Estimated GFR > 60 Random Glucose 107 (60-115) mg/dL Calcium 9.2 (8.4-10.2) mg/dL Magnesium 1.8 (1.6-2.6) mg/dL Total Bilirubin 0.7 (0.0-1.0) mg/dL Direct Bilirubin 0.2 (0.0-0.5) mg/dL AST 19 (5-31) U/L ALT 16 (0-31) U/L Alkaline Phosphatase 50 (39-117) U/L C-Reactive Protein (< or = 0.50) mg/dL Total Protein 6.0 L (6.5-8.0) g/dL Albumin 3.9 (3.5-5.0) g/dL Urine Color Urine Appearance Urine pH (5.0-9.0) Ur Specific [place] (1.005-1.025) Urine Protein (Neg-Trace) mg/dL Urine Glucose (UA) (Negative) mg/dL Urine Ketones (Negative) mg/dL Urine Blood (Negative) Urine Nitrite (Negative) Ur Leukocyte Esterase (Negative) Urine Test (NEGATIVE) Debbie species DNA (Negative) Chlam trachomat DNA PCR (Not Detect.) Gardnerella DNA Probe (Negative) N.gonorrhoeae DNA (PCR) (Not Detect.) Trichomonas DNA Probe (Negative) 09/28/22 09/28/22 09/28/22 Range/Units 10:38 10:38 11:20 WBC (4.8-10.8) X10*3/uL RBC (4.20-5.50) X10*6/uL Hgb (12.0-16.0) g/dl Hct (37.0-47.0) % MCV (80.0-98.0) fL MCH (27.0-33.0) pg MCHC (31.0-35.0) g/dl RDW (11.0-16.0) % Plt Count (160-400) X10*3/uL MPV (9.4-12.3) fL Immature Gran % (Auto) (0.0-0.4) % Neut % (Auto) (45-73) % Lymph % (Auto) (20-40) % Dubois % (Auto) (2-11) % Eos % (Auto) (0-4) % Baso % (Auto) (0-2) % Lymph # (Auto) (1.2-4.9) X10*3/uL Dubois # (Auto) (0.1-1.2) X10*3/uL Eos # (Auto) (0.0-0.4) X10*3/uL Baso # (Auto) (0.0-0.2) X10*3/uL Abs Immat Gran (auto) (0.00-0.03) X10*3/uL Absolute Neuts (auto) (2.0-8.3) x10*3/uL Absolute Nucleated RBC (0.0-0.012) X10*3/uL Nucleated RBC % (auto) (0.0-0.2) /100WBC ESR (0-20) MM/HR Sodium (135-145) mmol/L Potassium (3.3-5.1) mmol/L Chloride (96-108) mmol/L Carbon Dioxide (22-29) mmol/L Anion Gap (12-20) BUN (9-16) mg/dL Creatinine (0.5-1.4) mg/dL Estim Creat Clear Calc Estimated GFR Random Glucose (60-115) mg/dL Calcium (8.4-10.2) mg/dL Magnesium (1.6-2.6) mg/dL Total Bilirubin (0.0-1.0) mg/dL Direct Bilirubin (0.0-0.5) mg/dL AST (5-31) U/L ALT (0-31) U/L Alkaline Phosphatase (39-117) U/L C-Reactive Protein (< or = 0.50) mg/dL Total Protein (6.5-8.0) g/dL Albumin (3.5-5.0) g/dL Urine Color Yellow Urine Appearance Clear Urine pH 6.0 (5.0-9.0) Ur Specific [place] 1.020 (1.005-1.025) Urine Protein Negative (Neg-Trace) mg/dL Urine Glucose (UA) Negative (Negative) mg/dL Urine Ketones Trace (Negative) mg/dL Urine Blood Negative (Negative) Urine Nitrite Negative (Negative) Ur Leukocyte Esterase Negative (Negative) Urine Test NEGATIVE (NEGATIVE) Debbie species DNA (Negative) Chlam trachomat DNA PCR NOT DETECTED (Not Detect.) Gardnerella DNA Probe (Negative) N.gonorrhoeae DNA (PCR) NOT DETECTED (Not Detect.) Trichomonas DNA Probe (Negative) 09/28/22 09/28/22 Range/Units 11:20 12:30 WBC (4.8-10.8) X10*3/uL RBC (4.20-5.50) X10*6/uL Hgb (12.0-16.0) g/dl Hct (37.0-47.0) % MCV (80.0-98.0) fL MCH (27.0-33.0) pg MCHC (31.0-35.0) g/dl RDW (11.0-16.0) % Plt Count (160-400) X10*3/uL MPV (9.4-12.3) fL Immature Gran % (Auto) (0.0-0.4) % Neut % (Auto) (45-73) % Lymph % (Auto) (20-40) % Dubois % (Auto) (2-11) % Eos % (Auto) (0-4) % Baso % (Auto) (0-2) % Lymph # (Auto) (1.2-4.9) X10*3/uL Dubois # (Auto) (0.1-1.2) X10*3/uL Eos # (Auto) (0.0-0.4) X10*3/uL Baso # (Auto) (0.0-0.2) X10*3/uL Abs Immat Gran (auto) (0.00-0.03) X10*3/uL Absolute Neuts (auto) (2.0-8.3) x10*3/uL Absolute Nucleated RBC (0.0-0.012) X10*3/uL Nucleated RBC % (auto) (0.0-0.2) /100WBC ESR (0-20) MM/HR Sodium (135-145) mmol/L Potassium (3.3-5.1) mmol/L Chloride (96-108) mmol/L Carbon Dioxide (22-29) mmol/L Anion Gap (12-20) BUN (9-16) mg/dL Creatinine (0.5-1.4) mg/dL Estim Creat Clear Calc Estimated GFR Random Glucose (60-115) mg/dL Calcium (8.4-10.2) mg/dL Magnesium (1.6-2.6) mg/dL Total Bilirubin (0.0-1.0) mg/dL Direct Bilirubin (0.0-0.5) mg/dL AST (5-31) U/L ALT (0-31) U/L Alkaline Phosphatase (39-117) U/L C-Reactive Protein < 0.04 (< or = 0.50) mg/dL Total Protein (6.5-8.0) g/dL Albumin (3.5-5.0) g/dL Urine Color Urine Appearance Urine pH (5.0-9.0) Ur Specific [place] (1.005-1.025) Urine Protein (Neg-Trace) mg/dL Urine Glucose (UA) (Negative) mg/dL Urine Ketones (Negative) mg/dL Urine Blood (Negative) Urine Nitrite (Negative) Ur Leukocyte Esterase (Negative) Urine Test (NEGATIVE) Debbie species DNA Negative (Negative) Chlam trachomat DNA PCR (Not Detect.) Gardnerella DNA Probe Negative (Negative) N.gonorrhoeae DNA (PCR) (Not Detect.) Trichomonas DNA Probe Negative (Negative) Radiology Impression Discussion of test interpretation with radiology: I discussed test interpretation with the radiologist and I have reviewed the radiologist's reading. Radiologist Impression: US/US pelvic and transvagina 09/25 l IMPRESSION: Complex appearance of the right ovary which is enlarged and demonstrates several cystic lesions, some with internal septations. In a post menopausal patient, further evaluation with a pelvic MRI with and without IV contrast is recommended to rule out malignancy. ? Tortuous adnexal vessels could be seen with pelvic congestion syndrome in the appropriate clinical context. ? The endometrium is within the upper limits of normal for postmenopausal patient measuring 0.5 cm. Spoke directed w/ Dr. Castro - this complex right ovarian cystic lesion does not appear to be consistent with abscess. Will defer emergent MRI today. Independent Historian Clinical information obtained from an independent historian. History obtained from or confirmed by: Friend External Record Review External record reviewed: Outpatient record, Prior outpatient labs and Prior outpatient radiology Prescription Management I considered prescription management with: Pain Medication and Antibiotic Critical Care Time Critical Care Time Critical Care Time: Yes Total Critical Care Time: 36 Attestation: I have personally provided critical care time exclusive of time spent on separately billable procedures. Time includes review of lab data, radiology results, discussion with consultants, and monitoring for potential decompensation. Intervention performed as documented. Discharge Plan Discharge Clinical Impression: Nausea, Complex ovarian cyst Patient Disposition: Home, Self-Care Instructions: Acute Nausea and Vomiting (ED) Additional Instructions: Your lab work up was unremarkable. You had no elevated white blood cell count or elevated inflammatory markers to suggest active infection. Your urinalysis was negative for infection. You tested negative for gonorrhea, chlamydia, yeast, trichomonas on 09/24. Recommend STOPPING all antibiotics Continue a probiotic to allow your intestines and vaginal area to regain normal karen on their own Stick to a bland diet while you are not feeling well Use the rectal promethazone OR oral reglan for nausea. do not use both at the same time Rest and stink plenty of fluids. Recommend following up with your VICTIM WITNESS ADMINISTRATOR, PCP. Also recommend following up with GI - name and number below. If you develop new or worsening symptoms call 911 or come back to the ER for further evaluation. Prescriptions: New promethazine 25 mg suppository [address] Q6H PRN (Reason: nausea and vomiting) Qty: 12 0RF metoclopramide HCl [Reglan] 10 mg tablet 10 mg PO Q6H PRN (Reason: nausea and vomiting) Qty: 14 0RF No Action ondansetron 4 mg tablet,disintegrating 4 mg PO TID PRN (Reason: nausea and vomiting) 5 Days Qty: 10 0RF metronidazole 500 mg tablet 500 mg PO BID 14 Days Qty: 28 0RF doxycycline hyclate 100 mg capsule 100 mg PO BID 14 Days Qty: 28 0RF clotrimazole [Clotrimazole AF] 1 % cream 1 appl topical BID 14 Days Qty: 45 0RF Referrals: [facility] [place] [facility] [Provider Group] (nausea) Center,[facility] [Primary Care Provider] - Interventions: ED Discharge Assessment Last Done: 09/28/22 14:38 Discharge Date/Time: 09/28/22 14:39
[2022-09-28 09:39] VITALS: BP 105/52; PULSE 68; RESP 13; TEMP 36.5; O2SAT 97
[2022-09-28] MEDS: 0.9 % Sodium Chloride 1,000 ML 999 ML IVCONT ×2 (10:10→12:12)
[2022-09-28] MEDS: ondansetron HCL 4 MG/2 ML VIAL IVPUSH (10:15)
[2022-09-28 10:25] LABS: MANUAL DIFF FLAG NO
--- NOTE | 2022-09-28 10:28 | P.CONOB_ITS ---
PUNCHER - CN: HPI Data of Consult Consult date: 09/28/22 Primary Care Provider: [facility] Consult Narrative Narrative: I was consulted on Suri Hill is a 52 year old female who presented to the ER for evaluation of increased nausea and inability to tolerate her oral antibiotics that were started for presumed PID. The patient has been seen by several providers including primary care physician, CHAIR [employer] COUCH [employer]KER, Urgent Care and here in the ER in the last 2 weeks. She was seen here on 09/18 for nausea after being treated with diflucan for a yeast infection. CT abd/pelvis at that time was normal. She was seen at Urgent Care and started on Macrobid for possible UTI. She came back to the ER on 09/24 where she was found to have bilateral adenxal tenderness on exam, thick white vaginal discharge and was started on antibiotics for PID. Pelvic U/S on 09/24 showed complex appearance of right ovary w/ several cystic lesions, pelvic MRI was recommended outpatient to r/o malignancy. GC/CT, BV panel, Trichomonas, UA, and urine test all came back negative. Prior to any of her symptoms starting she reports using a new lubricant with clove in it. She used a sex toy anally and vaginally. She has had the same sexual partner for the last 9 months. The patient gives a history of Lyme disease that presented with GI symptoms. in the ER cbc, chem, UA, UPR all neg US muuliple complex ov cysts , no doppler flow cc:: CC: OB [facility] Past Medical History Medical History (Updated 09/28/22 @ 11:59 by Henrique Hinojosa MD) Lyme disease Social History Social History Advance Directives: No Advance Directives Information Provided: Yes Meds Allergies Allergy/AdvReac Type Severity Reaction Status Date / Time No Known Allergies Allergy Verified 09/28/22 09:25 Active Medications: Current Medications Sodium Chloride (Ns) 1,000 mls @ 999 mls/hr IVCONT .Q1H1M JANETH Stop: 09/28/22 11:00 Last Admin: 09/28/22 10:10 Dose: 999 mls/hr PUNCHER Physical Exam Vitals Vital signs: Temp Pulse Resp BP Pulse Ox O2 Del Method 97.7 F 68 13 105/52 L 97 Room Air 09/28/22 09:39 09/28/22 09:39 09/28/22 09:39 09/28/22 09:39 09/28/22 09:39 09/28/22 09:39 BMI result Body Mass Index 20.2 Abdomen Auscultation/Inspection/Palpation: Normal bowel sounds, Soft, Non-distended and No tenderness Female Genitalia (Pelvic) Bladder/Urethra: Normal meatus Vulva: No lesions Vagina: Nontender Cervix: No cervical motion tenderness and Polyp (Endocervical polyp 0.5 cm) Uterus: Normal size and Nontender Adnexa/Parametria: Adnexal Tenderness: None PUNCHER - Results Labs 09/28/22 09:47 09/28/22 09:47 Assessment and Plan (1) Cervical polyp: Status: Acute Discussed with the patient the finding on pelvic exam showing a endocervical polyp, not related to her presenting symptoms, recommended outpatient follow-up with her OBGYN for further rx (2) Complex ovarian cyst: Status: Acute Discussed with the patient the complex ovarian cysts by ultrasound, the main limitation of transvaginal ultrasonography alone as a diagnostic tool to distinguish benign from malignant masses relates to its lack of specificity and low positive predictive value for cancer. The differential diagnosis discussed with the patient includes the following but not limited to: benign and malignant gynecological and non-gynecological causes. Recommend the patient outpatient follow-up as soon as possible with her OBGYN with an MRI, CA 125 and further management. All questions were answered & the patient verbalized understanding and agreed with the plan. (3) Nausea: Status: Inactive Explained to the patient that her vaginal symptoms in retro respect were most l ikely an allergic reaction to the newly purchased lubricant with a multiple misdiagnosis of vulvovaginitis candidiasis and UTI since there was no evidence of Debbie on vaginal swabs or urine pathogen on urine culture; since then her vaginal symptoms have resolved. In addition, discussed with the patient that she has no signs and symptoms that fit criteria for PID, no pelvic pain, fever, no abdominal tenderness, no cervical motion tenderness, uterine or adnexal tenderness, no leukocytosis, GC/chlamydia, Trichomonas are negative, therefore there is no indication for any antibiotic treatment for PID. Discussed the case with Kate Mendoza NP in the emergency ; it is unlikely that her GI symptoms are caused by life skills worker causes, will defer the management to the emergency room providers. Time Spent With Patient Time: Total time managing care of this patient today ____ minutes.
[2022-09-28 10:30] LABS: Basophils Percent Auto 0.4 % (0-2); Eosinophils Percent Auto 0.3 % (0-4); Hematocrit 40.7 % (37.0-47.0); Hemoglobin 13.9 g/dl (12.0-16.0); Imm Gran Abs Auto 0.04 X10*3/uL (0.00-0.03); Imm Gran Pct Auto 0.4 % (0.0-0.4); Lymphocytes Absolute Auto 1.2 X10*3/uL (1.2-4.9); Mean Corpuscular HGB Conc 34.2 g/dl (31.0-35.0); Mean Corpuscular Hemoglobin 31.7 pg (27.0-33.0); Mean Corpuscular Volume 92.9 fL (80.0-98.0); Monocytes Absolute Auto 0.6 X10*3/uL (0.1-1.2); Monocytes Percent Auto 6.2 % (2-11); Neutrophils Absolute Auto 7.5 x10*3/uL (2.0-8.3); Neutrophils Percent Auto 79.7 % (45-73); Platelet Count 238 X10*3/uL (160-400); Red Blood Count 4.38 X10*6/uL (4.20-5.50); Red Cell Distribution Width 11.9 % (11.0-16.0); White Blood Count 9.4 X10*3/uL (4.8-10.8)
[2022-09-28 10:41] LABS: Alanine Aminotransferase 16 U/L (0-31); Albumin Level 3.9 g/dL (3.5-5.0); Alkaline Phosphatase 50 U/L (39-117); Anion Gap 11 (12-20); Aspartate Amino Transferase 19 U/L (5-31); Bilirubin Direct 0.2 mg/dL (0.0-0.5); Bilirubin Total 0.7 mg/dL (0.0-1.0); Blood Urea Nitrogen 15 mg/dL (9-16); Calcium 9.2 mg/dL (8.4-10.2); Carbon Dioxide 24 mmol/L (22-29); Chloride 108 mmol/L (96-108); Estimated Glomerular Filt Rate > 60; Glucose Random 107 mg/dL (60-115); Magnesium 1.8 mg/dL (1.6-2.6); Potassium 3.9 mmol/L (3.3-5.1); Sodium 139 mmol/L (135-145)
[2022-09-28 10:48] LABS: Appearance Urine Clear; Color Urine Yellow; Glucose Urine UA Negative (Negative); Leukocyte Esterase Urine Negative (Negative); Nitrite Urine Negative (Negative); Urine Blood Negative (Negative); Urine Ketones Trace mg/dL (Negative); Urine Protein Negative (Neg-Trace)
[2022-09-28 10:50] LABS: UPreg QC Valid YES; Urine Pregnancy NEGATIVE (NEGATIVE)
[2022-09-28 12:00] VITALS: BP 117/39; PULSE 70; RESP 16; O2SAT 97
[2022-09-28] MEDS: Docusate Sodium 100 MG CAPSULE PO (12:13)
[2022-09-28] MEDS: Metoclopramide HCl 10 MG/2 ML VIAL IVPUSH (12:13)
[2022-09-28] MEDS: polyethylene glycoL 3350 17 GM POWD.PACK PO (12:14)
[2022-09-28 12:27] LABS: Erythrocyte Sedimentation Rate 7 MM/HR (0-20)
[2022-09-28 12:54] LABS: C Reactive Protein < 0.04 mg/dL (< or = 0.50)
--- NOTE | 2022-09-28 12:54 | PC.NURSE ---
pt reports that reglan has helped nausea but does not believe she should go home bc she believes nausea will return without IV antiemetics.
[2022-09-28 14:14] LABS: CT PCR NOT DETECTED (Not Detect.); NG PCR NOT DETECTED (Not Detect.)
[2022-09-28 14:20] LABS: BV Int Neg Control Negative (Negative); BV Int Pos Control Positive (Positive)
--- NOTE | 2022-09-28 14:23 | PC.NURSE ---
pt cleared for discharge. currently in bathroom and is aware of plan.
[2022-09-28 14:31] VITALS: BP 115/58; PULSE 68; O2SAT 96
--- NOTE | 2022-09-28 14:38 | PC.NURSE ---
discharge instruction reviewed with pt. estela.
[2022-10-01 01:14] LABS: Lyme Abs Screen <0.90 index
== END 2022-09-28 14:39 | disposition home or self-care (01) ==
PROVIDERS: Physician Assistant; Emergency Provider Emergency Medicine
DX: N83.291 Other ovarian cyst, right side (principal); N84.1 Polyp of cervix uteri; R11.0 Nausea; A69.20 Lyme disease, unspecified
CPT/HCPCS: 0353U; 36415; 80048; 80076; 81003; 81025; 83735; 85025; 85652; 86140; 86617; 86618; 87480; 87510; 87660; 96361; 96374; 96375; 99284; J2405; J2765